=== PATIENT | male | born 1980 | race Caucasian/White ===

== ENCOUNTER 2017-11-12 22:12 | Emergency (ER) | payer OTHER ==
[~2017-11-12] VITALS: Ht 170.2 cm; Wt 61.2 kg
[2017-11-13 00:25] VITALS: BP 127/84
== END 2017-11-13 00:30 | disposition home or self-care (01) ==
LOC: ER 22:12
DX: S61.411A Laceration without foreign body of right hand, initial encounter (principal); W25.XXXA Contact with sharp glass, initial encounter; Y93.89 Activity, other specified; Y92.89 Other specified places as the place of occurrence of the external cause; Y99.8 Other external cause status

== ENCOUNTER 2017-11-29 12:44 | Emergency (ER) | payer OTHER ==
[~2017-11-29] VITALS: Ht 170.2 cm; Wt 81.7 kg
[2017-11-29 12:52] VITALS: BP 128/77
== END 2017-11-29 13:20 | disposition home or self-care (01) ==
LOC: ER 12:44
DX: Z48.02 Encounter for removal of sutures (principal); Z87.442 Personal history of urinary calculi